=== PATIENT | male | born 1980 ===

== ENCOUNTER → 2016-11-29 | Outpatient (CLI) | payer BC ==
[2016-11-29 16:25] LABS: ALT/SGPT 33 U/L (12-78); BLOOD UREA NITROGEN 12 mg/dl (7-18); BUN/CREATININE RATIO 11.6 (10-20); CALCIUM 9.1 mg/dl (8.5-10.1); CARBON DIOXIDE 31 mmol/L (21-32); CHLORIDE 104 mmol/L (98-107); CHOLESTEROL 117 mg/dl (0-200); GLUCOSE 93 mg/dl (70-99); POTASSIUM 4.5 mmol/L (3.5-5.1); SODIUM 139 mmol/L (136-145)
[2016-11-29 16:33] LABS: ALB/GLOB RATIO 1.1 (0.9-2); ALKALINE PHOSPHATASE 74 U/L (45-117); AST/SGOT 13 U/L (15-37); CHOLESTEROL/HDL RATIO 3.1; HDL CHOLESTEROL 38 mg/dl; LDL CHOLESTEROL CALCULATED 59 mg/dl; TRIGLYCERIDES 100 mg/dl (0-150); VERY LOW DENSITY LIPOPROT CALC 20 mg/dl
[2016-11-29 17:12] LABS: BASO % 0.7 %; BASO ABS # 0.08 K/uL (0-0.2); COMPLETE YES; EOS % 5.4 %; HEMATOCRIT 45.5 % (42-52); IG% 0.2 %; LYMPH % 22.9 %; LYMPH ABS # 2.61 K/uL (1.2-3.4); MEAN CORPUSCULAR HGB CONC 31.9 g/dl (32-36); MEAN PLATELET VOLUME 10.5 fL (7.4-10.4); MONO % 7.1 %; NEUT % 63.7 %; PLATELET COUNT 396 K/uL (130-400); WHITE BLOOD COUNT 11.42 K/uL (4.8-10.8)
== END | disposition home or self-care (01) ==
LOC: C.LABSPEC 14:38
PROVIDERS: ATTEND Family Medicine
DX: I10 Essential (primary) hypertension (principal); E78.2 Mixed hyperlipidemia; Z68.41 Body mass index [BMI] 40.0-44.9, adult

== ENCOUNTER → 2018-01-10 | Outpatient (CLI) | payer BC ==
[2018-01-10 18:03] LABS: BASO % 0.6 %; BASO ABS # 0.06 K/uL (0-0.2); EOS ABS # 0.56 K/uL (0-0.5); HEMOGLOBIN 13.7 g/dL (14.0-18.0); IG# 0.02 K/uL (0.00-0.02); LYMPH % 13.2 %; LYMPH ABS # 1.22 K/uL (1.2-3.4); MEAN CELL VOLUME 91.1 fL (80-100); MEAN CORPUSCULAR HEMOGLOBIN 29.7 pg (25-34); MEAN CORPUSCULAR HGB CONC 32.6 g/dl (32-36); MONO ABS # 0.83 K/uL (0.11-0.59); NEUT ABS # 6.58 K/uL (1.4-6.5); PLATELET COUNT 305 K/uL (130-400); RED CELL DISTRIBUTION WIDTH CV 12.6 % (11.5-14.5); RED CELL DISTRIBUTION WIDTH SD 41.7 fL (36.4-46.3); WHITE BLOOD COUNT 9.27 K/uL (4.8-10.8)
[2018-01-10 18:14] LABS: ALBUMIN 3.9 gm/dl (3.4-5.0); ALKALINE PHOSPHATASE 64 U/L (45-117); ALT/SGPT 36 U/L (12-78); AST/SGOT 20 U/L (15-37); BLOOD UREA NITROGEN 10 mg/dl (7-18); CALCIUM 8.9 mg/dl (8.5-10.1); CARBON DIOXIDE 32 mmol/L (21-32); CHOLESTEROL 115 mg/dl (0-200); CREATININE 0.74 mg/dl (0.60-1.40); GLUCOSE 85 mg/dl (70-99); LDL CHOLESTEROL CALCULATED 52 mg/dl; POTASSIUM 3.9 mmol/L (3.5-5.1); SODIUM 142 mmol/L (136-145); TOTAL PROTEIN 7.4 gm/dl (6.4-8.2)
== END ==
LOC: C.LABSPEC 17:48
PROVIDERS: ATTEND Family Medicine
DX: I10 Essential (primary) hypertension (principal); E78.2 Mixed hyperlipidemia